=== PATIENT | female | born 1950 | race Caucasian/White ===

== ENCOUNTER → 2023-09-11 11:28 | Outpatient (REF) | payer MEDICARE, SELFPAY | LOC: HWRAD 11:28 | PROVIDERS: ATTENDING PHYSICIAN Internal Medicine Endocrinology, Diabetes & Metabolism; FAMILY PHYSICIAN Family Medicine | DX: M81.0 Age-related osteoporosis without current pathological fracture (principal) | CPT/HCPCS: 77080 ==

== ENCOUNTER 2023-10-06 14:16 | Outpatient (RCR) | payer MEDICARE, SELFPAY ==
[2023-10-06] MEDS: RECLAST 100 IV (14:51)
[2023-10-06 15:03] VITALS: BP 126/81
== END 2023-10-07 09:00 | disposition home or self-care (01) ==
LOC: OID 14:16
PROVIDERS: ATTENDING PHYSICIAN Internal Medicine Endocrinology, Diabetes & Metabolism; FAMILY PHYSICIAN Family Medicine
DX: M81.0 Age-related osteoporosis without current pathological fracture (principal)
CPT/HCPCS: 96365; J3489

== ENCOUNTER → 2023-12-10 11:16 | Outpatient (REF) | payer MEDICARE, SELFPAY | LOC: HWRCS 11:16 | PROVIDERS: ATTENDING PHYSICIAN Internal Medicine Cardiovascular Disease; FAMILY PHYSICIAN Family Medicine | DX: I77.810 Thoracic aortic ectasia (principal) | CPT/HCPCS: 93306 ==

== ENCOUNTER → 2024-01-04 15:06 | Outpatient (REF) | payer MEDICARE, SELFPAY | LOC: HWWDC 15:06 | PROVIDERS: ATTENDING PHYSICIAN Family Medicine | DX: Z12.31 Encounter for screening mammogram for malignant neoplasm of breast (principal) | CPT/HCPCS: 77063; 77067 ==

== ENCOUNTER → 2024-01-12 08:31 | Outpatient (REF) | payer MEDICARE, SELFPAY | LOC: WDC 08:31 | PROVIDERS: ATTENDING PHYSICIAN Family Medicine | DX: R92.8 Other abnormal and inconclusive findings on diagnostic imaging of breast (principal) | CPT/HCPCS: 77065 ==

== ENCOUNTER → 2024-01-14 06:24 | Outpatient (REF) | payer MEDICARE, SELFPAY ==
--- NOTE | 2024-01-14 09:30 | OID.BR.INTR ---
OID Breast Navigator - Initial
- -
Date of Contact: 01/14/24
Met with patient. Patient given written information on navigator services and support services available at [facility]. Will follow up as needed per protocol.
== END ==
LOC: WDC 06:24
PROVIDERS: ATTENDING PHYSICIAN Family Medicine
DX: R92.1 Mammographic calcification found on diagnostic imaging of breast (principal)
CPT/HCPCS: 88305; 19081; 76098; A4648

== ENCOUNTER → 2024-01-27 08:40 | Outpatient (REF) | payer MEDICARE, SELFPAY | LOC: RAD 08:40 | PROVIDERS: ATTENDING PHYSICIAN Family Medicine | DX: R10.10 Upper abdominal pain, unspecified (principal) | CPT/HCPCS: 76705 ==

== ENCOUNTER 2024-03-26 13:28 | Emergency (ER) | payer MEDICARE, SELFPAY ==
[2024-03-26 13:29] VITALS: BP 135/95
--- NOTE | 2024-03-26 13:45 | ED.GENMED ---
History of Present Illness
General
Chief Complaint: Urinary Symptoms
Source: patient
Time Seen by Provider: 03/26/24 13:37
History of Present Illness
History of Present Illness:
73yoF with a history of prediabetes, GERD, and osteoporosis presenting with her for evaluation of decreased urine output. Patient started taking Protonix 3 days ago. Since starting this, patient has noticed a decrease in her urine output.
She denies any urinary retention, dysuria, hematuria, abdominal pain, flank pain, vomiting, diarrhea. She reports normal PO intake. Last urination was <1 hour ago. Patient called her PCP who advised her to go to the ED to get her kidney function
checked. Patient reports URI symptoms and nasal congestion for the past few days. Multiple home COVID tests have been negative.
Past History
Past History
ED Past Medical History: HTN and MS
ED Past Surgical History: Cardiac (AAA) and Other (parathyroid)
Social History
Tobacco: Non-smoker
Personal:
Living: with family
Phy Exam
General Physical Exam
General Presentation: well appearing and no apparent distress
General age: appears stated age
General Skin: warm and dry
General Habitus: normal
General Mental: alert
Cardiovascular Exam
Cardiovascular Exam: regular rate/rhythm
Pulmonary Exam
Pulmonary Exam: lungs clear, no respiratory distress, no crackles and no wheezing
Gastrointestinal Exam
Gastrointestinal Exam: non tender, soft, non distended and no cva tenderness
Skin Exam
Skin Exam: normal color and warm/dry
Psychiatric Exam
Psychiatric Exam: normal mood/affect
Course
Orders/Labs/Results
Orders:
Orders
03/26/24 13:44
0.9% Sodium Chloride 1000 ml [Nss] 1,000 ml IV BOLUS
03/26/24 13:55
Complete Blood Count/With Diff Urgent
Comprehensive Metabolic Panel Urgent
03/26/24 15:22
Urinalysis Reflex To Culture Urgent
Date Specimen was Collected: 03/26/24
Time Specimen was Collected: 15:20
Abnormal Lab Results
03/26/24
13:55
WBC 4.5 L 10^3/uL
(4.8-10.8)
RBC 3.51 L 10^6/uL
(4.20-5.40)
Hgb 11.5 L g/dL
(12.0-16.0)
Hct 32.8 L %
(37.0-47.0)
MCH 32.8 H pg
(27.0-31.0)
Absolute Lymphs (auto) 1.0 L 10^3/uL
(1.2-3.4)
Monocytes % 13.1 H %
(1.7-9.3)
BUN 19 H mg/dl
(7-17)
Glucose 101 H mg/dl
(70-99)
03/26/24 13:55
03/26/24 13:55
Vital Signs
Initial and Last Documented VS:
Initial Vital Signs
Temp Pulse Resp BP Pulse Ox
97.5 F 77 16 135/95 96
03/26/24 13:29 03/26/24 13:29 03/26/24 13:29 03/26/24 13:29 03/26/24 13:29
Last Documented Vital Signs
Temp Pulse Resp BP Pulse Ox
97.5 F 77 16 135/95 96
03/26/24 13:29 03/26/24 13:29 03/26/24 13:29 03/26/24 13:29 03/26/24 13:29
MDM/Problems Addressed
Differential Diagnosis Includes:
73yoF here with decreased UOP x several days since starting a PPI. Also having URI symptoms. No decreased PO intake, vomiting, or diarrhea. No other urinary symptoms. She is afebrile and hemodynamically stable. She is well appearing in no distress.
No abdominal or CVA tenderness on exam. Differential diagnosis includes but is not limited to: dehydration, AMPARO, UTI
Initial ED plan: Check CBC, CMP, and UA. IV fluid bolus.
*Critical Care Note
Total Time (30-74mins, 75-104mins- exclusive of procedures): Not Applicable
Update Note
Update Note:
Renal function is normal and creatinine 0.7. UA bland without signs of infection. No proteinuria present. Patient urinated 2x while in ED. She is stable for discharge. Encouraged hydration and f/u with PCP. ED return precautions discussed. She was
discharged in stable condition.
ED Attending Note
-
Portions of this chart may have been created with voice recognition software.� Occasional wrong word or��sound alike� substitutions may have occurred due to the inherent limitations of voice recognition software.
Discharge Plan
Departure
Patient Disposition: Home (Routine Discharge)
Date of Disposition: 03/26/24
Time of Disposition: 15:51
Patient with high blood pressure during this ER visit?: No
Discharge Problem:
Decreased urine output
Instructions: Dehydration, Adult ED
Prescriptions:
No Action
estradiol 1 APPLIC cream
1 applic vaginal .2XWK
cholecalciferol (vitamin D3) 1,000 UNITS tablet
1,000 units PO BID
albuterol sulfate 18 GM HFA aerosol inhaler
2 puff inhalation Q4H PRN (Reason: ALLERGIES)
Calcium Citrate 600 MG
300 mg PO DAILY
acetaminophen [Tylenol] 325 mg Tablet
650 mg PO Q4H PRN (Reason: pain)
Metamucil Packet
1 packet PO DAILY
flaxseed Powder
1 ea PO DAILY
fluticasone propion-salmeterol [Advair HFA] 115-21 mcg/actuation Hfa Aerosol Inhaler
2 puff INHALATION BID
Referrals:
Gerhard Vitale DO [Family Provider] -
Activity Restrictions/Additional Instructions:
Drink plenty of fluids and hydrate.
Please follow-up with your family doctor. Return to the ER with any new or worsening symptoms.
Interventions
Interventions:
*Risk Screen - Suicide Last Done: 03/26/24 13:29
*General Assessment Last Done: 03/26/24 13:29
*Neglect/Abuse Screening Last Done: 03/26/24 14:20
*ED COVID-19 Vaccine History Last Done: 03/26/24 13:29
ED-Female Genitourinary Assessment Last Done: 03/26/24 14:20
Discharge Date and Time
Print Language: BELARUSIAN
[2024-03-26] MEDS: NSS 1000 IV (13:56)
[2024-03-26 14:25] LABS: ALT (SGPT) 14 U/L (0-35); AST (SGOT) 26 U/L (14-36); Albumin 3.8 g/dl (3.5-5.0); Alkaline Phosphatase 48 U/L (38-126); Blood Urea Nitrogen 19 mg/dl (7-17); Calcium 8.6 mg/dl (8.4-10.2); Carbon Dioxide 26 mmol/L (22-30); Chloride 101 mmol/L (98-107); Glucose 101 mg/dl (70-99); Potassium 4.6 mmol/L (3.5-5.1); Sodium 135 mmol/L (135-145); Total Bilirubin 0.4 mg/dl (0.2-1.3); Total Protein 6.4 g/dl (6.3-8.2); eGFR > 60.00
[2024-03-26 14:52] LABS: % Basophils 0.4 % (0-2); % Eosinophils 0.7 % (0-6); % Immature Granulocytes 0.2 % (0-0.5); % Lymphocytes 21.8 % (20.5-51.1); % Monocytes 13.1 % (1.7-9.3); % Neutrophils 63.8 % (42.2-75.2); Absolute Monocytes 0.6 10^3/uL (0.1-0.6); Absolute Neutrophils 2.9 10^3/uL (1.4-6.5); Hematocrit 32.8 % (37.0-47.0); Hemoglobin 11.5 g/dL (12.0-16.0); Mean Corp Hgb Conc. 35.1 g/dL (33.0-37.0); Mean Corpuscular Hgb 32.8 pg (27.0-31.0); Mean Corpuscular Volume 93.4 fL (81.0-99.0); Nucleated Red Blood Cells % 0 %; Red Blood Cell Count 3.51 10^6/uL (4.20-5.40); Red Cell Dist. Width 12.4 % (11.5-14.5); White Blood Cell Count 4.5 10^3/uL (4.8-10.8)
[2024-03-26 15:37] LABS: Urine Albumin Negative (Neg - Trace); Urine Bilirubin Negative (Negative); Urine Character Clear (Clear); Urine Color Straw; Urine Glucose Negative (Negative); Urine Ketone Negative (Negative); Urine Leukocyte Negative (Negative); Urine Nitrite Negative (Negative); Urine Occult Blood Negative (Negative); Urine Specific Gravity 1.005 (<1.030); Urine Urobilinogen Negative (Neg - 1+); Urine pH 6.5 (5.0-9.0)
[2024-03-26 15:54] VITALS: BP 110/87
== END 2024-03-26 16:06 | disposition home or self-care (01) ==
LOC: EMR 13:28
PROVIDERS: Physician Assistant; EMERGENCY PHYSICIAN Emergency Medicine; FAMILY PHYSICIAN Family Medicine
DX: R39.198 Other difficulties with micturition (principal); I10 Essential (primary) hypertension; K21.9 Gastro-esophageal reflux disease without esophagitis; Z79.899 Other long term (current) drug therapy
CPT/HCPCS: 99284; 96360; 80053; 81003; 85025

== ENCOUNTER → 2024-06-28 14:15 | Outpatient (REF) | payer MEDICARE, SELFPAY | LOC: PAVMRI 14:15 | PROVIDERS: ATTENDING PHYSICIAN Neurological Surgery; FAMILY PHYSICIAN Family Medicine | DX: D49.7 Neoplasm of unspecified behavior of endocrine glands and other parts of nervous system (principal) | CPT/HCPCS: 72156; A9575 ==

== ENCOUNTER → 2024-07-31 07:53 | Outpatient (REF) | payer MEDICARE, SELFPAY | LOC: MRI 3T 07:53 | PROVIDERS: ATTENDING PHYSICIAN Family Medicine | DX: M25.552 Pain in left hip (principal) | CPT/HCPCS: 73721 ==

== ENCOUNTER 2024-10-27 12:53 | Outpatient (RCR) | payer MEDICARE, SELFPAY ==
[2024-10-27 13:05] VITALS: BP 122/70
[2024-10-27] MEDS: RECLAST 100 IV (13:14)
[2024-10-27 14:00] VITALS: BP 107/67
== END 2024-10-28 08:52 | disposition home or self-care (01) ==
LOC: OID 12:53
PROVIDERS: ATTENDING PHYSICIAN Internal Medicine Endocrinology, Diabetes & Metabolism
DX: M81.0 Age-related osteoporosis without current pathological fracture (principal)
CPT/HCPCS: 96365; J3489

== ENCOUNTER → 2024-11-06 13:39 | Outpatient (REF) | payer MEDICARE, SELFPAY | LOC: MRI 3T 13:39 | PROVIDERS: ATTENDING PHYSICIAN Family Medicine | DX: M54.30 Sciatica, unspecified side (principal) | CPT/HCPCS: 72148 ==

== ENCOUNTER → 2025-01-16 15:02 | Outpatient (REF) | payer MEDICARE, SELFPAY | LOC: WDC 15:02 | PROVIDERS: ATTENDING PHYSICIAN Family Medicine | DX: Z12.31 Encounter for screening mammogram for malignant neoplasm of breast (principal) | CPT/HCPCS: 77063; 77067 ==

== ENCOUNTER → 2025-01-19 12:48 | Outpatient (REF) | payer MEDICARE, SELFPAY | LOC: HWRCS 12:48 | PROVIDERS: ATTENDING PHYSICIAN Internal Medicine Cardiovascular Disease; FAMILY PHYSICIAN Family Medicine | DX: I77.810 Thoracic aortic ectasia (principal) | CPT/HCPCS: 93306 ==

== ENCOUNTER → 2025-06-07 13:54 | Outpatient (REF) | payer MEDICARE, SELFPAY | LOC: HWRAD 13:54 | PROVIDERS: ATTENDING PHYSICIAN Physician Assistant; FAMILY PHYSICIAN Family Medicine; REFERRING PHYSICIAN Internal Medicine Hematology & Oncology | DX: R91.1 Solitary pulmonary nodule (principal) | CPT/HCPCS: 71250 ==

== ENCOUNTER → 2025-06-28 06:39 | Outpatient (REF) | payer MEDICARE, SELFPAY | LOC: HWRAD 06:39 | PROVIDERS: ATTENDING PHYSICIAN Internal Medicine Hematology & Oncology; FAMILY PHYSICIAN Family Medicine | DX: R91.8 Other nonspecific abnormal finding of lung field (principal); D59.6 Hemoglobinuria due to hemolysis from other external causes; D72.819 Decreased white blood cell count, unspecified | CPT/HCPCS: 76700 ==

== ENCOUNTER 2025-07-04 07:45 | Inpatient (IN) | payer MEDICARE, SELFPAY ==
[2025-07-01 08:45] VITALS: BP 139/93
[2025-07-01] MEDS: OMNIPAQUE 50 ML PO (09:54)
[2025-07-01 10:00] VITALS: BP 144/95
--- NOTE | 2025-07-01 10:11 | ED.GENMED ---
History of Present Illness
General
Chief Complaint: Abdominal Pain
Time Seen by Provider: 07/01/25 09:15
History of Present Illness
History of Present Illness:
see MDM
Past History
Past History
ED Past Medical History: HTN and CA
ED Past Surgical History: Cardiac (AAA) and Other (parathyroid)
Social History
Tobacco: Non-smoker
Personal:
Living: with family
Phy Exam
Physical Exam
Physical Exam:
see MDM
Course
Orders/Labs/Results
Orders:
Orders
07/01/25 09:31
CT Abd/pel W Iv And Oral Contr Urgent
Comment:
Reason For Exam: RLQ pain intermittent; leukopenia
Iohexol [Omnipaque] See Protocol PO NOW STA
07/01/25 09:48
Complete Blood Count/With Diff Urgent
Comprehensive Metabolic Panel Urgent
Lactic Acid Urgent
Lipase Urgent
07/01/25 11:31
Urinalysis Reflex To Culture Urgent
Date Specimen was Collected: 07/01/25
Time Specimen was Collected: 10:43
07/01/25 15:06
Consult Hospitalist [HOSPITALIST CONSULT] Routine
Consulting Provider: Harris Guzman
Was physician already notified: Yes
Reason for consult: medical clearance
07/01/25 15:07
Admit/Transfer Patient As Directed
Co-Sign Provider:
Level of Care: Observation services
Assign to:: Medical/Surgical
Physician / Group: Angelito Manzano
Diagnosis: Appendiceal neoplasm
PRN Pain Medication Management As Directed
May give lesser potent ordered pain med per pt: Yes
preference::
Protocol:: Medication orders for pain may be administered in a
manner that supports deferring to patient preference
when the pt is:
- Requesting an ordered lesser potent pain medication.
Least to most potent pain medications are defined
as: acetaminophen < NSAID < tramadol < opioids
(morphine, oxycodone, hydromorphone).
- Requesting a lesser dose of the same medication IF
ORDERED.
- Requesting a less intrusive route of administration
if both routes are prescribed by the provider (PO <
IV).
07/01/25 15:08
Code Status As Directed
Resuscitation Status: Full Code
Abnormal Lab Results
07/01/25
09:48
RBC 3.92 L 10^6/uL
(4.20-5.40)
MCH 33.9 H pg
(27.0-31.0)
Absolute Lymphs (auto) 0.6 L 10^3/uL
(1.2-3.4)
Neutrophils % 81.0 H %
(42.2-75.2)
Lymphocytes % 10.0 L %
(20.5-51.1)
Sodium 133 L mmol/L
(135-145)
BUN 20 H mg/dl
(7-17)
Lactic Acid 0.6 L mmol/L
(0.7-2.0)
07/01/25 09:48
07/01/25 09:48
Vital Signs
Initial and Last Documented VS:
Initial Vital Signs
Temp Pulse Resp BP Pulse Ox
36.9 C 88 18 139/93 96
07/01/25 08:45 07/01/25 08:45 07/01/25 08:45 07/01/25 08:45 07/01/25 08:45
Last Documented Vital Signs
Temp Pulse Resp BP Pulse Ox
36.9 C 59 17 144/95 99
07/01/25 08:45 07/01/25 10:30 07/01/25 10:30 07/01/25 10:00 07/01/25 10:30
MDM/Problems Addressed
Differential Diagnosis Includes:
see MDM
MDM/Problems Addressed:
Note:
CHIEF COMPLAINT(S)
Intermittent, sharp pelvic pain.
HISTORY OF PRESENT ILLNESS
The patient is a 75-year-old female h/o asthma, AAA repair 2010, CA, essential tremor
and possibly lung cancer (nodules on CT), leukopenia recently
who reports awakening at approximately 4:00 AM feeling R pelvic pain lasting a few seconds, that resolved. she took a shower and felt fine. While eating breakfast, she experienced a localized, sharp pain in the lower pelvis at approximately 7:40
AM. The pain was intense enough to cause her to momentarily double over. She had a similar episode at 8:40 AM while in the waiting room. The episodes were brief, lasting only seconds, and occurred without precedent. She denies prior history of
kidney stones, ovarian cysts, or cancer. However, she notes ongoing evaluation for a low white blood cell count discovered about a month ago during routine blood work. She has been undergoing consultation with hematology, pulmonology, and oncology.
Recent imaging includes an ultrasound of the liver and gallbladder performed two days prior. The patient is under investigation for lung nodules discovered on a recent chest computed tomography scan.
she denies fever, chills, weight loss, vomiting, diarrhea, urinary symptoms.
Patient did just complete Augmentin for sinus infection given by her family doctor within the last 2 weeks. She says she is mostly better from that. She has no residual significant cough or cold symptoms
PAST MEDICAL AND SURGICAL HISTORY
- Asthma
- Osteoporosis
- Tremors
- History of abdominoplasty and umbilical hernia repair
- History of tubal ligation
CHRONIC MEDICAL CONDITIONS SIGNIFICANTLY AFFECTING CARE
- Asthma
- Osteoporosis
- Tremors
SOCIAL HISTORY
The patient reported no current usage of asthma medication due to forgetfulness.
MEDICATIONS
Recently completed a course of Augmentin for a sinus infection. Reports no current use of asthma medication.
PHYSICAL EXAM
GENERAL: Alert , in no apparent distress
EYE: pupils equal and reactive
NECK: Supple
ENT: o/p clr, mmm.
CARDIAC: Regular rate and rhythm .
LUNGS: Clear breath sounds bilaterally, no acute respiratory distress, no wheezes/rales/rhonchi
ABDOMEN: Soft, without focal tenderness, no r/g, no cvat, normal bowel sounds
NEUROLOGICAL: Alert and oriented, no focal neuro deficits, mild eccentric tremor bilateral upper extremities
SKIN: Warm and dry, skin intact.
MUSCULOSKELETAL: No edema, well perfused. neg nishi's sign
PSYCH: Normal and appropriate interaction.
Nursing notes reviewed and vital signs reviewed.
PROBLEM LIST
Acute Problems:
- Intermittent, sharp pelvic pain
- Recent diagnosis of low white blood cell count
Chronic Problems:
- Asthma
- Osteoporosis
- Tremors
PLAN
- Perform a computed tomography scan of the abdomen with oral and intravenous contrast to assess for abdominal and pelvic pathology.
- Conduct a complete blood count and chemistry panel, including liver enzymes.
- Obtain a urinalysis to evaluate for potential urinary tract infection.
- The patient is scheduled for a comprehensive hematologic workup by a valving machine operator on the upcoming Thursday.
- Patient declined analgesics for pain at present, but to re-evaluate if pain becomes unmanageable.
DIFFERENTIAL DIAGNOSIS
The Differential Diagnosis includes, in no particular order and is not limited to:
1. Urinary tract infection
2. Kidney stones
3. Ovarian cysts
4. Gastrointestinal spasm or gas pains
5. Diverticulitis
6. Abdominal wall pain
7. Leukemia or lymphoma (due to low white cell count)
8. Pelvic inflammatory disease
9. Acute appendicitis
10. Mesenteric ischemia
CARE-UPDATE
07/01/25 - 13:57
Patient exhibits intermittent right lower quadrant/pelvic pain, currently undergoing evaluation for biolucopia. Recent CT scan identified multiple pulmonary nodules raising suspicion for metastatic disease, though no primary malignancy has been
detected upon examination. Latest CT results reveal a significant 8x3x3 cm peripendiceal mass; differential diagnosis includes intussusception but leans towards a neoplastic process. Discussion held with Dr. Manzano from colorectal surgery; surgical
consultation anticipated to determine further management plan.
07/01/25 - 14:19
Patient presents with a possible abnormality in the region of the appendix, as visualized on imaging, but the appendix itself is not clearly identifiable. Differential includes an intestinal intussusception or potentially a mass, which could be a
benign growth or less likely, a malignancy. There is a noted history of multiple benign growths, consistent with familial history of benign cysts. Multiple pulmonary nodules identified on CT, with a differential diagnosis including benign etiology
or metastatic spread, though not typical of primary lung cancer. The patient has no smoking history.
The patient is experiencing intermittent abdominal pain, currently less frequent. A surgical consultation has been requested for further evaluation and determination of the need for additional testing or intervention. Pending orthopedic assessment
for possible admission to observe overnight and assess treatment needs more definitively. Patient advised to maintain NPO status until further surgical evaluation can be completed to determine the necessity and timing of potential surgical
intervention. Awaiting the availability of a hospital room for possible overnight observation.
*Pulse Oximetry
SaO2: 96
Oxygen Mode of Delivery: Room air
Patient hypoxic: no (99)
*Critical Care Note
Total Time (30-74mins, 75-104mins- exclusive of procedures): Not Applicable
ED Attending Note
-
Portions of this chart may have been created with voice recognition software.� Occasional wrong word or��sound alike� substitutions may have occurred due to the inherent limitations of voice recognition software.
Discharge Plan
Departure
Patient Disposition: Admit
Date of Disposition: 07/01/25
Time of Disposition: 14:55
Admit to: Med/Surg
Presentation/result/management discussed w/ accepting MD/DO: Hospitalist
Condition: Fair
Covid-19: Not Applicable
Discharge Problem:
Abdominal pain
Prescriptions:
No Action
estradiol 1 APPLIC cream
1 applic vaginal .2XWK
cholecalciferol (vitamin D3) 1,000 UNITS tablet
2,000 units PO DAILY
albuterol sulfate 18 GM HFA aerosol inhaler
2 puff inhalation Q4H PRN (Reason: ALLERGIES)
acetaminophen [Tylenol] 325 mg Tablet
650 mg PO Q4H PRN (Reason: pain)
pantoprazole 20 mg Tablet,Delayed Release (Dr/Ec)
20 mg PO DAILY PRN (Reason: REFLUX)
Referrals:
Gerhard Vitale DO [Family Provider, Family Practice]
Interventions
Interventions:
*Risk Screen - Suicide Last Done: 07/01/25 08:45
*General Assessment Last Done: 07/01/25 08:45
*Neglect/Abuse Screening Last Done: 07/01/25 08:45
*ED COVID-19 Vaccine History Last Done: 07/01/25 10:24
*ED Influenza Vaccine History Last Done: 07/01/25 10:24
[facility] Fall Risk Assessment Tool Last Done: 07/01/25 10:24
RY-Atabye-Cbzxdgrzts Assessment Last Done: 07/01/25 10:25
Discharge Date and Time
Print Language: SOLOMON ISLANDER
[2025-07-01 10:15] LABS: Hematocrit 38.8 % (37.0-47.0); Hemoglobin 13.3 g/dL (12.0-16.0); Mean Corp Hgb Conc. 34.3 g/dL (33.0-37.0); Mean Corpuscular Volume 99.0 fL (81.0-99.0); Nucleated Red Blood Cells % 0 %; Platelet Count 131 10^3/uL (130-400); Red Cell Dist. Width 12.6 % (11.5-14.5)
[2025-07-01 10:24] VITALS: BMI 19.5
[2025-07-01 10:45] LABS: ALT (SGPT) 30 U/L (0-35); AST (SGOT) 30 U/L (14-36); Albumin 4.6 g/dl (3.5-5.0); Alkaline Phosphatase 59 U/L (38-126); Blood Urea Nitrogen 20 mg/dl (7-17); Calcium 9.4 mg/dl (8.4-10.2); Carbon Dioxide 28 mmol/L (22-30); Chloride 100 mmol/L (98-107); Estimated Creatinine Clearance 65 ml/min; Glucose 91 mg/dl (70-99); Lipase 125 U/L (23-300); Potassium 4.3 mmol/L (3.5-5.1); Sodium 133 mmol/L (135-145); Total Protein 7.8 g/dl (6.3-8.2); eGFR > 60.00
[2025-07-01 11:42] LABS: Urine Character Clear (Clear)
--- NOTE | 2025-07-01 14:49 | HPS.HSE ---
Family Physician
-
Family Physician: Gerhard Vitale, DO
Chief Complaint
-
RLQ pain
History of Present Illness
75 yo female with a h/o ascending aortic aneurysm s/p graft, UHR, surgery for ectopic , asthma and abdominoplasty who presents through the ED with RLQ which began this morning causing her to present to the ED for evaluation. She has no
tenderness currently on exam. She reports recent history of URI and just completed a course of Augmentin. She notes CT's to follow lung nodules with some debate over whether her nodules need biopsy or have remained stable. She has also lost 20lbs
over the last year but attributes this to changes in her diet and exercise.
Medical History
Past Medical History
Past Medical History: Reports OR (takutsobo cardiomyopathy) and Other (hyperparathyroid, ibs, lung nodules)
Past Surgical History: Reports Cardiac (ascending aortic aneurysm s/p graft), Gynocological (ectopic on right) and Other (umbilical hernia repair)
Social History
Tobacco: Non-smoker
Alcohol: None
Personal:
Living: With Family
Family History
Family History: Not pertinent
Allergies / Home Medications
Allergies reflects when Allergies were last updated in [employer].
Home Medications with original date entered in [employer]
Allergy/Medication List:
Patient Allergies
Allergy/AdvReac Type Severity Reaction Status Date / Time
latex Allergy Itching Verified 07/01/25 08:45
�Medication �Instructions �Recorded �Confirmed �Type
cholecalciferol (vitamin D3) 25 2,000 units PO DAILY 12/22/18 10/27/24 History
mcg (1,000 unit) tablet
estradiol 0.01% (0.1 mg/gram) 1 applic vaginal .2XWK 12/22/18 10/27/24 History
vaginal cream
albuterol sulfate 90 mcg/actuation 2 puff inhalation Q4H PRN ALLERGIES 01/19/20 10/27/24 History
aerosol inhaler
acetaminophen 325 mg tablet 650 mg PO Q4H PRN pain 10/06/23 10/27/24 History
(Tylenol)
pantoprazole 20 mg tablet,delayed 20 mg PO DAILY PRN REFLUX 10/27/24 10/27/24 History
release
Review of Systems
-
History Source: Patient and Family
A 12 point ROS was completed and negative except as noted: Yes
Physical Exam
Vital Signs
Vital Signs
Temp Pulse Resp BP Pulse Ox
98.4 F 59 17 144/95 99
07/01/25 08:45 07/01/25 10:30 07/01/25 10:30 07/01/25 10:00 07/01/25 10:30
Physical Exam
General: Well Developed and Well Nourished
HEENT: NormoCephalic and Moist mucous membranes
Respiratory: Clear and Non Labored Respirations
GI: Soft and Non Tender
Skin: Warm and Dry
Neuro: Awake, Alert and AO x 3
Psych: Calm
Laboratory Results
-
07/01/25 09:48
07/01/25 09:48
Laboratory Results
Lactic Acid 0.6 mmol/L (0.7-2.0) L 07/01/25 09:48
Total Bilirubin 0.6 mg/dl (0.2-1.3) 07/01/25 09:48
AST 30 U/L (14-36) 07/01/25 09:48
ALT 30 U/L (0-35) 07/01/25 09:48
Alkaline Phosphatase 59 U/L (38-126) 07/01/25 09:48
Lipase 125 U/L (23-300) 07/01/25 09:48
Data Reviewed
-
CT Scan: Image Personally Visualized and interpreted, Report Reviewed by me, Discussed with Physician, Discussed with Patient and Discussed with Family
Lab Data: Labs Reviewed by me, Discussed with Physician, Discussed with Patient and Discussed with Family
Old Records: Reviewed
Impression/Plan
-
IMPRESSION:
75 yo female with a h/o ascending aortic aneurysm s/p graft, UHR, surgery for ectopic , asthma and abdominoplasty who presents through the ED with RLQ which began this morning causing her to present to the ED for evaluation. She has no
tenderness currently on exam. She reports recent history of URI and just completed a course of Augmentin. She notes CT's to follow lung nodules with some debate over whether her nodules need biopsy or have remained stable. She has also lost 20lbs
over the last year but attributes this to changes in her diet and exercise.
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 No evidence of perforation or rupture.
PLAN:
Ok for regular diet today
Clear liquid diet tomorrow for bowel prep
Will plan robotic appendectomy +/- right cecectomy on Thursday
c/w home meds
analgesics prn
Will consult hospitalist for medical clearance
--- NOTE | 2025-07-01 15:28 | CM ---
Chart reviewed and spoke with patient and at ED bedside
Lives with in [facility]
Independent with [facility]
DME nebulizer
PCP Dr. Gerhard Vitale
[facility] in [place]
no hx of VN nor SNF
Plan for OR on Thursday per surgery
CM will continue to follow up for dcp needs
[2025-07-01 15:32] VITALS: BP 147/97
--- NOTE | 2025-07-01 15:52 | CON.HOSP ---
Consultation
-
Date/Time Consultation Requested: July 01, 2025 @1500
Date/Time Consultation Performed: July 01, 2025 @ 15:35
Requesting Provider: JUANJOSE Lamb / Dr. Angelito Manzano
Performing Provider: Dai Arenas PA-C / Dr. Harris Guzman
Reason for Consultation: Medical Evaluation
Family Physician
-
Family Physician: Gerhard Vitale DO
Chief Complaint
-
Abdominal Pain
History of Present Illness
Patient is a 75 y/o female past medical history of Takotsubo cardiomyopathy, Asthma, and Osteoporosis who presents with abdominal pain. Patient describes right lower quadrants pain since this morning Work-up in ED revealed a large appendiceal
mucinous neoplasm. She does note she recently has a Chest CT scan that revealed lung nodules. Patient reports over the past year she has lost about 20lbs which she attributes to changes in diet and increased exercise. She reports she is very active
going to the gym several times a week. She denies chest pain, or shortness of breath associated with exercise.
Medical History
Past Medical History
Additional Past Medical History:
Takotsubo Cardiomyopathy
Asthma
Osteoporosis
Abdominal Aortic Aneurysm s/p Graft Repair
Primary Hyperparathyroidism s/p Parathyroidectomy
Additional Past Surgical History:
AAA Repair
Parathyroidectomy
Right Salpingectomy
Umbilical Hernia Repair
Social History
Tobacco: Non-smoker
Alcohol: None
Family History
Family History: Reviewed & Not Pertinent
Allergies / Home Medications
Allergies reflects when Allergies were last updated in [employer].
Home Medications with original date entered in [employer]
Allergy/Medication List:
Allergies
Allergy/AdvReac Type Severity Reaction Status Date / Time
latex Allergy Itching Verified 07/01/25 08:45
Home Medications
acetaminophen 160 mg chewable tablet (Children's Acetaminophen) 320 mg PO TIDPRN PRN mild pain 07/01/25
budesonide 0.25 mg/2 mL suspension for nebulization 0.25 mg inhalation R BID Lung/Breathing Issues 07/01/25
cholecalciferol (vitamin D3) 25 mcg (1,000 unit) chewable tablet (Vitamin D3) 25 mcg PO DAILY Supplement 07/01/25
estradiol 0.01% (0.1 mg/gram) vaginal cream (Estrace) 1 appful vaginal SUWE Hormonal Agent 07/01/25
magnesium glycinate 350 mg PO HS Supplement 07/01/25
Review of Systems
-
History Source: Patient
A 12 point Review of Systems was completed except as noted: Yes
Constitutional: Reports Weight Loss; Denies Fever
Respiratory: Reports Cough (Chronic)
Cardiac: Denies Chest Pain or Palpitations
Abdomen/GI: Reports See HPI
Physical Exam
Vital Signs
Vital Signs
Temp Pulse Resp BP Pulse Ox
98.5 F 77 18 147/97 96
07/01/25 15:32 07/01/25 15:32 07/01/25 15:32 07/01/25 15:32 07/01/25 15:32
Physical Exam
General: Well Developed and No Apparent Distress
HEENT: Anicteric and Moist Mucous Membranes
Respiratory: Clear and Non Labored Respirations
Cardiac: S1/S2 and Regular Rhythm
GI: Soft and Non Distended
Rectal: Deferred by Provider
Musculoskeletal: No Clubbing, No Cyanosis and No Edema
Skin: Warm and Dry
Neuro: Awake, Alert, Oriented and No Motor Deficits
Psych: Calm
Laboratory Results
-
Laboratory Results
07/01/25 09:48
07/01/25 09:48
Lactic Acid 0.6 mmol/L (0.7-2.0) L 07/01/25 09:48
Total Bilirubin 0.6 mg/dl (0.2-1.3) 07/01/25 09:48
AST 30 U/L (14-36) 07/01/25 09:48
ALT 30 U/L (0-35) 07/01/25 09:48
Alkaline Phosphatase 59 U/L (38-126) 07/01/25 09:48
Lipase 125 U/L (23-300) 07/01/25 09:48
Data Reviewed
-
CT Scan: Report Reviewed by Me
Lab Data: Labs Reviewed
Impression / Plan
-
Appendiceal Mass
-Care as per Surgery - Planning for OR on Thursday
-Patient is medically optimized for proposed surgery as benefits outweigh the risks
Takotsubo Cardiomyopathy
-Patient follows with Dr. Russell
-Echo December 2024: Normal left ventricular size, wall thickness and systolic function with EF 60-65%
-Check pre-op ECG
Asthma, no acute exacerbation
-Patient follows with Dr. Wyatt
-Continue budesonide
DVT proph: Lovenox
Code Status: Full Code
--- NOTE | 2025-07-01 16:21 | W.PN.UPDATE ---
Update Note
Progress Note Update
This note serves as an addendum to the H&P by master of ceremonies Marielle LAND
I saw and examined the patient.
The RE RECORDING MIXER or PA's note was reviewed and I agree with the note.
Comment:
75F HX ascending aortic aneurysm s/p graft, UHR, surgery for ectopic , asthma and abdominoplasty seen at ER
- RLQ which began this morning
- no tenderness currently on exam.
- Report 20 lbs over the yr - unintentional wt loss
- recent history of URI and just completed a course of Augmentin.
- CT's to follow lung nodules with some debate over whether her nodules need biopsy or have remained stable.
VS:
Vital Signs
Temp Pulse Resp BP Pulse Ox
98.5 F 77 18 147/97 96
07/01/25 15:32 07/01/25 15:32 07/01/25 15:32 07/01/25 15:32 07/01/25 15:32
PE
Gen: tall and thin, NAD, Not toxic
HEENT: anicteric
Neck: supple
Lungs: CTA
Cor: RRR
Abdomen:�soft , NT on my exam -
GIS SOFTWARE DEVELOPER: AAO3
MS: no edema
Psych: appropriate
Abnormal Labs
07/01/25
09:48
RBC 3.92 L
MCH 33.9 H
Absolute Lymphs (auto) 0.6 L
Neutrophils % 81.0 H
Lymphocytes % 10.0 L
Sodium 133 L
BUN 20 H
Lactic Acid 0.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
No evidence of perforation or rupture.
ASSESSMENT & PLAN
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
No evidence of perforation or rupture.
- Known to P Cardio DR Russell ( [facility] )
- Medically acceptable to proceed for surgery pending EKG
- Benefits of OR outweigh surgical risks
- Ok for regular diet today then clear liquid diet tomorrow for bowel prep
- has plan robotic appendectomy +/- right cecectomy on Thursday
- c/w home Meds
- analgesics prn
DVT Px: SCD
Full code
IP MS
[2025-07-01 16:30] VITALS: BP 138/93
[2025-07-01 16:31] VITALS: BMI 17.2
[2025-07-01] MEDS: LOVENOX 40 MG SC (18:19)
[2025-07-01] MEDS: PULMICORT 0.25 MG INH (21:06)
[2025-07-01 23:16] VITALS: BP 108/62
[2025-07-02 07:00] VITALS: BP 143/82
[2025-07-02] MEDS: PULMICORT 0.25 MG INH ×2 (07:47→19:49)
[2025-07-02 08:39] LABS: Hepatitis C Antibody Negative (Negative)
--- NOTE | 2025-07-02 10:58 | W.PN.HOSP.TC ---
Addendum entered and electronically signed by Bala Sweeney MD 07/02/25 11:39:
Hx of essential tremors
Original Note:
Today's Communication/Plan
-
Monitor closely.
Repeat labs in the morning
Preop and postop per surgery
Assessment / Plan
Assessment / Plan
Appendiceal Mass
Pulmonary nodules
-Care as per Surgery - Planning for OR on Thursday
- EKG with normal sinus rhythm. Ventricular to 64. No severe acute ST or T wave changes noted. No previous EKG available. Patient denied any chest pain at rest or exertion. Patient walks on treadmill 30 minutes 5/7 days of week. Also does
strength training without any chest pain/exertion/sob. Denies Coronary artery stent. No renal disease or diabetes problem. Patient with low RCRI risk score and Cruz score patient is medically optimized for proposed surgery as benefits outweigh
the risks.
Takotsubo Cardiomyopathy
-Patient follows with Dr. Russell
-Echo December 2024: Normal left ventricular size, wall thickness and systolic function with EF 60-65%
-
Asthma, no acute exacerbation
-Patient follows with Dr. Wyatt
-Continue budesonide
Cervical arthritis/C2
- Used to follow with neurosurgery at [facility] and underwent MRI of the cervical spine earlier in the year. Patient was told by the surgery no need for further follow-up.
Thoracic aortic aneurysm status post graft
Mild hyponatremia
-monitor for now
-labs in am
DVT proph: Lovenox
Code Status: Full Code
Anticipated Discharge: > 48 hours
Subjective/Interval History
-
Date of Service: July 02, 2025
denies chest pain at rest or exertion
denies shortness of breath at rest or exertion
Objective Data
-
Vital Signs:
Vital Signs
Temp Pulse Resp BP Pulse Ox
98.4 F 75 16 143/82 96
07/02/25 07:00 07/02/25 07:45 07/02/25 07:45 07/02/25 07:00 07/02/25 07:45
I&O
07/01/25 07/02/25 07/03/25
06:59 06:59 06:59
Intake Total 0 / 0
Balance 0 / 0
Physical Exam
-
General: No Apparent Distress and Cachectic
HEENT: Normocephalic, Atraumatic and Moist Mucous Membranes
Respiratory: Clear to Auscultation
Cardiac: Regular Rhythm and S1/S2; Negative Murmur, Rub or Gallop
GI: Soft, Nontender, Nondistended and Normal Bowel Sounds; Negative Organomegaly
Rectal: Deferred by Provider
Musculoskeletal: No Clubbing, No Cyanosis and No Edema
Skin: Negative Rash
Neuro: Awake, Alert, Oriented, AO x 3, No Motor Deficits and Nonfocal/Grossly Intact
Psych: Calm
Data Reviewed
-
Total Time Spent with Patient (in minutes): 55
--- NOTE | 2025-07-02 12:33 | W.PN.CRS1 ---
Today's Communication / Plan
-
Bowel prep today, OR tomorrow
Assessment/Plan
-
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 CT maging confirms 8 X 3 cm tubular structure in RLQ and shows no evidence for obstruction. No obvious evidence for perforation on imaging.
This is less likely a ileocecal intussusception. She also has constitutional symptoms including 20 pound weight loss over the last year. There are known lung nodules of unclear significance as well. AFVSS.
Plan:
Clears today and bowel prep for surgery on Thursday
NPO after MN for robotic appendectomy plus minus cecectomy/right colectomy depending on findings.
Appreciate hospitalist eval for medical clearance
The patient is agreeable to the plan. at bedside. All questions answered.
Subjective Data
Subjective Data
Date of Service: July 02, 2025
Pt seen and examined at bedside with Dr. Manzano. Denies n/v. Denies pain. Questions addressed.
Objective Data
-
Vital Signs
Temp Pulse Resp BP Pulse Ox
98.4 F 75 16 143/82 96
07/02/25 07:00 07/02/25 07:45 07/02/25 07:45 07/02/25 07:00 07/02/25 07:45
Intake & Output
07/01/25 07/02/25 07/03/25
06:59 06:59 06:59
Intake Total 0 / 0
Balance 0 / 0
Intake:
Oral fluids 0 / 0
Other:
Number of approximated MODERATE 1
amounts of urine
Lab Results
07/01/25 09:48
07/01/25 09:48
Physical Exam
-
General: No Acute Distress
HEENT: Grossly Normal
Abdomen: Soft, Non Distended and Non Tender
Skin: Warm
--- NOTE | 2025-07-02 14:18 | PTOTSP ---
Dysphagia Evaluation
Patient is demonstrating signs concerning for oral/pharyngeal dysphagia possible related to history of essential tremors, which per patient are progressing to from left to right hand and now the larynx. As patient has had no known complications,
continue diet below. Consider video swallow study to objectively assess swallow function if appropriate after OR.
Recommend:
1. Continue thin liquids (on clear liquids per physician)
2. Medications as best tolerated
3. Strategies: upright to 90 degrees, single sips, oral care 3x daily to reduce risk for aspiration complications
4. Video swallow study recommended. Will determine if appropriate for swallow study after OR.
[2025-07-02 15:16] VITALS: BP 128/75
[2025-07-02] MEDS: GAVILAX 238 GM PO (16:55)
[2025-07-02] MEDS: LOVENOX 40 MG SC (17:47)
[2025-07-02] MEDS: NON-FORMULARY ITEM 200 MG PO (22:19)
[2025-07-02 23:05] VITALS: BP 127/79
[2025-07-03] VITALS (22 sets, daily range): BP systolic 96–144; BP diastolic 53–93; BMI 17.2
[2025-07-03] MEDS: VENTOLIN NEBULES 2.5 MG INH (07:06)
[2025-07-03] MEDS: PULMICORT 0.25 MG INH (07:06)
[2025-07-03 07:16] LABS: INR 1.10; PT 14.3 Sec (11.4-14.6)
[2025-07-03 07:41] LABS: Blood Urea Nitrogen 12 mg/dl (7-17); Calcium 9.0 mg/dl (8.4-10.2); Carbon Dioxide 27 mmol/L (22-30); Chloride 102 mmol/L (98-107); Estimated Creatinine Clearance 57 ml/min; Glucose 102 mg/dl (70-99); Sodium 136 mmol/L (135-145); eGFR > 60.00
[2025-07-03 07:44] LABS: Hematocrit 39.0 % (37.0-47.0); Hemoglobin 13.2 g/dL (12.0-16.0); Mean Corp Hgb Conc. 33.8 g/dL (33.0-37.0); Mean Corpuscular Volume 99.7 fL (81.0-99.0); Nucleated Red Blood Cells % 0 %; Platelet Count 117 10^3/uL (130-400); Red Cell Dist. Width 12.6 % (11.5-14.5)
[2025-07-03 07:47] LABS: Potassium 4.3 mmol/L (3.5-5.1)
[2025-07-03] MEDS: D5/0.9% SODIUM CHLORIDE 1000 IV (09:40)
--- NOTE | 2025-07-03 10:03 | W.PN.HOSP.TC ---
Today's Communication/Plan
-
.
Assessment / Plan
Assessment / Plan
Physical Exam
General: No Apparent Distress and Cachectic
HEENT: Normocephalic, Atraumatic and Moist Mucous Membranes
Respiratory: Clear to Auscultation
Cardiac: Regular Rhythm and S1/S2; Negative Murmur, Rub or Gallop
GI: Soft, Nontender, Nondistended and Normal Bowel Sounds;
Musculoskeletal: No Clubbing, No Cyanosis and No Edema
Skin: Negative Rash
Neuro: Awake, Alert, Oriented, AO x 3, No Motor Deficits and Nonfocal/Grossly Intact
Psych: Calm
Appendiceal Mass
Pulmonary nodules
-Care as per Surgery - Planning for OR on Thursday
- EKG with normal sinus rhythm. Ventricular to 64. No severe acute ST or T wave changes noted. No previous EKG available. Patient denied any chest pain at rest or exertion. Patient walks on treadmill 30 minutes 5/7 days of week. Also does
strength training without any chest pain/exertion/sob. Denies Coronary artery stent. No renal disease or diabetes problem. Patient with low RCRI risk score and Cruz score patient is medically optimized for proposed surgery as benefits outweigh
the risks.
Takotsubo Cardiomyopathy
-Patient follows with Dr. Russell
-Echo December 2024: Normal left ventricular size, wall thickness and systolic function with EF 60-65%
-
Mild headache
Likely tension
Will give mild IVF with dextrose since she is feeling hungry and now NPO
Asthma, no acute exacerbation
-Patient follows with Dr. Wyatt
-Continue budesonide
Cervical arthritis/C2
- Used to follow with neurosurgery at [facility] and underwent MRI of the cervical spine earlier in the year. Patient was told by the surgery no need for further follow-up.
Thoracic aortic aneurysm status post graft
Mild hyponatremia
-monitor for now
Resolved
Sinus tachycardia likely due to inhaler ( B agonist)
No chest pain
DVT proph: Lovenox
Code Status: Full Code
Total time spent to see the patient, examined the patient, reviewed data and lab result, discuss treatment plan with patient, nursing staff around 55 minutes
Anticipated Discharge: > 48 hours
Subjective/Interval History
-
Date of Service: July 03, 2025
Mild headache ( feels hungry)
No chest pain or sob
Objective Data
-
Labs:
Laboratory Results
07/03/25
06:01
WBC 3.0 L
Hgb 13.2
Hct 39.0
Plt Count 117 L
PT 14.3
INR 1.10
Sodium 136
Potassium 4.3
Chloride 102
Carbon Dioxide 27
BUN 12
Creatinine 0.7
Glucose 102 H
Calcium 9.0
Vital Signs:
Vital Signs
Temp Pulse Resp BP Pulse Ox
98.1 F 76 18 144/93 100
07/03/25 07:15 07/03/25 08:27 07/03/25 08:27 07/03/25 07:15 07/03/25 08:27
I&O
07/02/25 07/03/25 07/04/25
06:59 06:59 06:59
Intake Total 0 / 0 900 / 900
Balance 0 / 0 900 / 900
--- NOTE | 2025-07-03 10:16 | W.PN.CRS1 ---
Today's Communication / Plan
-
OR today
Assessment/Plan
-
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 CT maging confirms 8 X 3 cm tubular structure in RLQ and shows no evidence for obstruction. No obvious evidence for perforation on imaging.
This is less likely a ileocecal intussusception. She also has constitutional symptoms including 20 pound weight loss over the last year. There are known lung nodules of unclear significance as well.
AFVSS
WBC: 3.0. Hgb 13.2.
Plan:
-NPO for surgery today with Dr. Manzano
-Appreciate hospitalist david for medical clearance
-The patient is agreeable to the plan. at bedside. All questions answered.
Subjective Data
Subjective Data
Date of Service: July 03, 2025
Patient states she has mild pain today. She is having loose stools from the prep. No other complaints.
Objective Data
-
Vital Signs
Temp Pulse Resp BP Pulse Ox
98.1 F 76 18 144/93 100
07/03/25 07:15 07/03/25 08:27 07/03/25 08:27 07/03/25 07:15 07/03/25 08:27
Intake & Output
07/02/25 07/03/25 07/04/25
06:59 06:59 06:59
Intake Total 0 / 0 900 / 900
Balance 0 / 0 900 / 900
Intake:
Oral fluids 0 / 0 900 / 900
Other:
Number of approximated MODERATE 1 1
amounts of urine
Number of approximated LARGE 1
amounts of urine
Lab Results
07/03/25 06:01
07/03/25 06:01
Physical Exam
-
General: No Acute Distress and AOx3
Abdomen: Soft, Non Distended and Non Tender
Skin: Warm and Dry
Incision: Clear, Dry, Intact
--- NOTE | 2025-07-03 11:07 | CM ---
Patient seen bedside with spouse.
patient for OR today.
Patient aware of CM availability should d/c needs arise.
Plan: home no needs anticipated.
--- NOTE | 2025-07-03 11:55 | CM ---
Camara form reviewed and signed by patient.
--- NOTE | 2025-07-03 16:07 | W.IMMPOSTOP ---
Addendum entered and electronically signed by Angelito Manzaon MD 07/03/25 16:48:
Patient's , Alexx, updated in waiting area.
Addendum entered and electronically signed by Angelito Manzano MD 07/03/25 16:29:
Due to subcutaneous crepitus and need to follow O2 sats after discussion with anesthesia, decision made to send to IMU.
Original Note:
Surgical Immed Post Op Note
-
Primary Surgeon: Janelle Manzano MD
Assisting Surgeon: DARSHAN Dawson
Pre-op Diagnosis: appendiceal mucocele (LAMN)
Post-op Diagnosis: distal ileal diverticulum
Procedure Performed: robotic abdominal exploration
Anesthesia Type: general plus local
Specimen / Cultures: none
Estimated Blood Loss: 5 cc
Complications: subcutaneous crepitus
Operative Findings: 1) normal appearing appendix 2) normal small bowel with exception of soft apparent ileal (?)diverticulum 5 cm from IC valve 3) no obvious intussusception
Brown in bladder.
Will send to med surg overnight.
Clears for now.
[2025-07-03 19:19] LABS: Glucose - Point of Care 133 mg/dl (70-99)
[2025-07-03] MEDS: PULMICORT INH (20:50)
--- NOTE | 2025-07-03 21:00 | PTCARENOTE ---
Pt arrived to floor from PACU. Pt drowsy, easily arousable, AAOx2, slightly confused forgetful from Anesthesia. HR in the 50's SB on the monitor with PVC's and Prolonged QT. Lungs clear. Anterior chest, abd, and posterior the entire left side with
noted crepitus. Hypo bowel. Left lower quadrant tenderness, 4 lap sites open to air, surg glue present. Pt used bedpan to void without difficulty. Knee high Teds/ Seq in place. Palpable peripheral pulses present. Right forearm int infusing Normosol
@80ml/hr as ordered. Pt positioned per comfort. Call acosta in reach. Bed alarm in place for pt safety. Will continue to monitor.
[2025-07-03] MEDS: TYLENOL 650 MG PO (21:36)
[2025-07-03] MEDS: LOVENOX SC (21:36)
[2025-07-03] MEDS: NORMOSOL-R/PLASMALYTE-A 1000 IV (21:36)
[2025-07-03] MEDS: NON-FORMULARY ITEM 200 MG PO (21:41)
[2025-07-03] MEDS: TORADOL 10 MG IV (22:19)
[2025-07-03] MEDS: TYLENOL PO (23:04)
[2025-07-04] VITALS (8 sets, daily range): BP systolic 94–133; BP diastolic 55–84; BMI 17.7
[2025-07-04] MEDS: TORADOL IV ×2 (04:34→11:16)
[2025-07-04] MEDS: TYLENOL 650 MG PO (04:36)
[2025-07-04 05:05] LABS: Hematocrit 31.4 % (37.0-47.0); Hemoglobin 10.9 g/dL (12.0-16.0); Mean Corp Hgb Conc. 34.7 g/dL (33.0-37.0); Mean Corpuscular Volume 98.1 fL (81.0-99.0); Nucleated Red Blood Cells % 0 %; Platelet Count 88 10^3/uL (130-400); Red Cell Dist. Width 12.3 % (11.5-14.5)
[2025-07-04 05:07] LABS: Blood Urea Nitrogen 10 mg/dl (7-17); Calcium 7.8 mg/dl (8.4-10.2); Carbon Dioxide 25 mmol/L (22-30); Chloride 104 mmol/L (98-107); Estimated Creatinine Clearance 69 ml/min; Glucose 115 mg/dl (70-99); Magnesium 2.2 mg/dl (1.6-2.3); Sodium 133 mmol/L (135-145); eGFR > 60.00
[2025-07-04 05:13] LABS: Potassium 4.3 mmol/L (3.5-5.1)
--- NOTE | 2025-07-04 06:16 | PTCARENOTE ---
Pt awake intermittently t/o the night. No changes in crepitus as this time, remains t/o chest, abd, and posterior on left side. Pt denies any complaints. IVF infusing as ordered. call acosta in reach. Will continue to monitor.
[2025-07-04] MEDS: PULMICORT 0.25 MG INH (07:52)
[2025-07-04] MEDS: VENTOLIN NEBULES 2.5 MG INH (07:53)
--- NOTE | 2025-07-04 08:00 | PTCARENOTE ---
Patient received lying in bed, awake alert and oriented. Forgetful at times. Patient is anxious and expressing frustration regarding hospitalization. Emotional support and encouragement given prn. See medical detail representative charted on worklist flowsheet. She
currently denies pain except with cough. Refuses po Tylenol. BBS clear. SCDs and teds in place. No edema, good pulses. SR on CM. S1S2 regular. Mild crepitus palpable on anterior torso/abd and left back. Sats 95-96% on RA. Bed in low and locked
position, bed alarm on, call acosta within reach.
[2025-07-04] MEDS: TYLENOL PO ×2 (08:14→12:30)
--- NOTE | 2025-07-04 09:37 | W.PN.HOSP.TC ---
Today's Communication/Plan
-
f/w surgery recommendations
Assessment / Plan
Assessment / Plan
Physical Exam
General: No Apparent Distress and Cachectic
HEENT: Normocephalic, Atraumatic and Moist Mucous Membranes
Respiratory: Clear to Auscultation
Cardiac: Regular Rhythm and S1/S2; Negative Murmur, Rub or Gallop
GI: Soft, Nontender, Nondistended and Normal Bowel Sounds;
Musculoskeletal: No Clubbing, No Cyanosis and No Edema
Skin: Negative Rash
Neuro: Awake, Alert, Oriented, AO x 3, No Motor Deficits and Nonfocal/Grossly Intact
Psych: Calm
# s/p robotic abdominal exploration for distal ileal diverticulum by Dr Manzano on 07/03
Prior to surgery, she was presumed to have appendiceal mucocele
Per surgery findings: normal appearing appendix 2) normal small bowel with exception of soft apparent ileal (?)diverticulum 5 cm from IC valve 3) no obvious intussusception
No abdominal pain, no nausea
Afebrile
f/w surgery recommendations
- EKG with normal sinus rhythm. Ventricular to 64. No severe acute ST or T wave changes noted. No previous EKG available. Patient denied any chest pain at rest or exertion. Patient walks on treadmill 30 minutes 5/7 days of week. Also does
strength training without any chest pain/exertion/sob. Denies Coronary artery stent. No renal disease or diabetes problem. Patient with low RCRI risk score and Cruz score patient is medically optimized for proposed surgery as benefits outweigh
the risks.
Takotsubo Cardiomyopathy
-Patient follows with Dr. Russell
-Echo December 2024: Normal left ventricular size, wall thickness and systolic function with EF 60-65%
- No sob
No chest pain
No hypoxia.
Mild headache
Resolved.
Asthma, no acute exacerbation
-Patient follows with Dr. Wyatt
-Continue budesonide
Cervical arthritis/C2
- Used to follow with neurosurgery at [facility] and underwent MRI of the cervical spine earlier in the year. Patient was told by the surgery no need for further follow-up.
Thoracic aortic aneurysm status post graft
Mild hyponatremia
Mild acute blood loss anemia
Sinus tachycardia likely due to inhaler ( B agonist)
No chest pain
DVT proph: Lovenox
Code Status: Full Code
Total time spent to see the patient, examined the patient, reviewed data and lab result, discuss treatment plan with patient, nursing staff around 30 minutes
Anticipated Discharge: Today
Subjective/Interval History
-
Date of Service: July 04, 2025
She denies nausea or abdominal pain
No headache
Objective Data
-
Labs:
Laboratory Results
07/04/25
04:28
WBC 5.4
Hgb 10.9 L
Hct 31.4 L
Plt Count 88 L D
Sodium 133 L
Potassium 4.3
Chloride 104
Carbon Dioxide 25
BUN 10
Creatinine 0.6
Glucose 115 H
Calcium 7.8 L
Vital Signs:
Vital Signs
Temp Pulse Resp BP Pulse Ox
98.1 F 79 16 112/61 97
07/04/25 07:40 07/04/25 08:03 07/04/25 08:03 07/04/25 06:00 07/04/25 08:03
I&O
07/03/25 07/04/25 07/05/25
06:59 06:59 06:59
Intake Total 900 / 900 1430 / 1430
Balance 900 / 900 1430 / 1430
[2025-07-04] MEDS: NORMOSOL-R/PLASMALYTE-A 1000 IV (09:38)
--- NOTE | 2025-07-04 10:05 | W.PN.CRS1 ---
Today's Communication / Plan
-
regular diet
likely dc later today
video swallow
Assessment/Plan
-
POD#1 robotic abdominal exploration
vitals normal
WBC: 5.4, Hgb 10.9
-Advance to a regular
-D/C IVFs when tolerating po
-OOB as tolerated/PT
-Lovenox for DVT prophylaxis. TEDS/SCDS in place.
-Okay to shower.
-Video swallow secondary to dysphagia per speech
-OKay for d/c later today if tolerating a diet
Subjective Data
Procedure
07/03/2025- robotic abdominal exploration
Subjective Data
Date of Service: July 04, 2025
Patient states she is having gas. Denies nausea or vomiting. She has some soreness. Still has some mild crepitus.
Objective Data
-
Vital Signs
Temp Pulse Resp BP Pulse Ox
98.1 F 79 16 112/61 97
07/04/25 07:40 07/04/25 08:03 07/04/25 08:03 07/04/25 06:00 07/04/25 08:03
Intake & Output
07/03/25 07/04/25 07/05/25
06:59 06:59 06:59
Intake Total 900 / 900 1430 / 1430 360 / 360
Balance 900 / 900 1430 / 1430 360 / 360
Intake:
Oral fluids 900 / 900 120 / 120 360 / 360
IV fluids (Total) 1310 / 1310
Normosol 350 / 350
Other:
Number of approximated MODERATE 1 3
amounts of urine
Number of approximated LARGE 1
amounts of urine
Lab Results
07/04/25 04:28
07/04/25 04:28
Physical Exam
-
General: No Acute Distress and AOx3
Abdomen: Soft, Non Distended, Tender (mild around incisions) and Other (mild crepitus in the abdomen noted)
Incision: Clear, Dry, Intact
--- NOTE | 2025-07-04 10:45 | PTCARENOTE ---
Ambulate to BR with assist x 1, gait unsteady. Voids without difficulty, small BM. Assisted to chair, gait more steady from toilet to chair. Marching in place.
--- NOTE | 2025-07-04 10:47 | PTOTSP ---
SPIRAL WEAVER Note
Per discussion with transport, patient refused video swallow study. Consider outpatient swallow study if patient in agreement.
--- NOTE | 2025-07-04 11:42 | CM ---
Patient seen at bedside with and daughter present in IMU. Patient status updated to INP per chart and UR. CM provided IMM and signed form placed on chart. Patient stated that they were hoping for discharge home today. Patient to follow up
with outpatient speech for video swallow. CM will continue to follow for discharge planning needs.
Plan; home with no needs anticipated at this time.
--- NOTE | 2025-07-04 14:30 | PTCARENOTE ---
Discharge instructions given to patient and her . Verbalize understanding. Paper copy given to patient. Questions answered. IV site dc'd, catheter intact. Pressure held to IV site, ecchymosis noted due to blood thinner. Assisted to dress in
street clothes. At 1450, patient discharged via wheelchair accompanied by volunteer. Belongings with patient including eyeglasses and home magnesium supplement.
== END 2025-07-04 15:01 | disposition home or self-care (01) | DRG 357 ==
LOC: IMU 07:45
PROVIDERS: Hospitalist; Physician Assistant; ADMITTING PHYSICIAN Surgery; EMERGENCY PHYSICIAN Emergency Medicine; FAMILY PHYSICIAN Family Medicine; OTHER PHYSICIAN Physician Assistant Medical
PROC: 8E0W4CZ Robotic Assisted Procedure of Trunk Region, Percutaneous Endoscopic Approach (ICD-10-PCS; 2025-07-03)
PROC: 0WJG4ZZ Inspection of Peritoneal Cavity, Percutaneous Endoscopic Approach (ICD-10-PCS; 2025-07-03)
DX: K57.10 Diverticulosis of small intestine without perforation or abscess without bleeding (principal); D62 Acute posthemorrhagic anemia; I51.81 Takotsubo syndrome; E87.1 Hypo-osmolality and hyponatremia; J45.909 Unspecified asthma, uncomplicated; M47.812 Spondylosis without myelopathy or radiculopathy, cervical region; R00.0 Tachycardia, unspecified; Z87.59 Personal history of other complications of pregnancy, childbirth and the puerperium; K58.9 Irritable bowel syndrome, unspecified; R91.8 Other nonspecific abnormal finding of lung field; Z91.040 Latex allergy status; Z86.79 Personal history of other diseases of the circulatory system; D72.819 Decreased white blood cell count, unspecified; I10 Essential (primary) hypertension; M81.0 Age-related osteoporosis without current pathological fracture; R13.10 Dysphagia, unspecified; Z90.79 Acquired absence of other genital organ(s); Z98.51 Tubal ligation status
CPT/HCPCS: 49320; S2900; 74177; 80048; 80053; 81003; 82962; 83605; 83690; 83735; 85025; 85610; 86803; 86850; 86900; 86901; 92610; 93005; 94640; 99284; G0378; J1335; Q9967